=== PATIENT | male | born 1985 | race Caucasian/White ===

== ENCOUNTER 2017-06-16 17:40 | Emergency (ER) | payer SELFPAY ==
[~2017-06-16] VITALS: Ht 172.7 cm; Wt 72.5 kg
[2017-06-16 17:45] VITALS: BP 124/83
[2017-06-16] MEDS ORDERED: MOTRIN600 MG PO (18:36)
[2017-06-16] MEDS ORDERED: PEN-VEE K,VEET500 MG PO (18:36)
== END 2017-06-16 18:46 | disposition home or self-care (01) ==
LOC: EME 17:40
DX: K02.9 Dental caries, unspecified (principal); F17.200 Nicotine dependence, unspecified, uncomplicated